=== PATIENT | male | born 1990 | race African-American/Black ===

== ENCOUNTER 2017-10-14 13:15 | Inpatient (IN) | payer OTHER ==
[2017-10-14 14:00] VITALS: BMI 29.7
--- NOTE | 2017-10-14 14:28 | HP ---
COWS - Scale Resting Pulse: 0= [place] 80 or Below Sweatin= Chills/Flushing Restless Observation: 3= Extraneous Movement Pupil Size: 1= Pupils >than Normal Bone or Joint Aches: 2= Severe Diffuse Aches Runny Nose/ Eye Tearin= Nasal Congestion GI Upset > 30mins: 2= Nausea/Diarrhea Tremor Observation: 2= Slight Tremor Visible Yawning Observation: 2= >3x During Session Anxiety or Irritability: 2=Irritable/Anxious Goose Flesh Skin: 3=Piloerection COWS Score: 19 Admission ROS S - HPI Chief Complaint: opiate and xanax withdrawal sx Allergies/Adverse Reactions: Allergies Allergy/AdvReac Type Severity Reaction Status Date / Time No Known Allergies Allergy Verified 10/14/17 14:26 History of Present Illness: 26 years old male with long history of opiate and xanax and nicotine dependence has hepatitis c and depression is admitted to detox Exam Limitations: No Limitations - Ebola screening Have you traveled outside of the country in the last 21 days: No (N) Have you had contact with anyone from an Ebola affected area: No Have you been sick,other than usual withdrawal symptoms: No Do you have a fever: No - Review of Systems Constitutional: Changes in sleep, Weight Stable EENT: reports: No Symptoms Reported Respiratory: reports: No Symptoms reported Cardiac: reports: No Symptoms Reported GI: reports: Nausea, Poor Fluid Intake, Abdominal cramping : reports: No Symptoms Reported Musculoskeletal: reports: Back Pain, Joint Pain, Muscle Pain, Neck Pain Integumentary: reports: Other (iv heroin both arms) Neuro: reports: Tremors Endocrine: reports: No Symptoms Reported Hematology: reports: No Symptoms Reported Psychiatric: reports: Judgement Intact, Orientated x3, Anxious, Depressed Other Systems: Reviewed and Negative Patient History - Patient Medical History Hx Anemia: No Hx Asthma: No Hx Chronic Obstructive Pulmonary Disease (COPD): No Hx Cancer: No Hx Cardiac Disorders: No Hx Congestive Heart Failure: No Hx Hypertension: No Hx Hypercholesterolemia: No Hx Pacemaker: No HX Cerebrovascular Accident: No Hx Seizures: No Hx Dementia: No Hx Diabetes: No Hx Gastrointestinal Disorders: No Hx Liver Disease: No Hx Genitourinary Disorders: No Hx Sexually Transmitted Disorders: No Hx Renal Disease (ESRD): No Hx Thyroid Disease: No Hx Human Immunodeficiency Virus (HIV): No Hx Hepatitis C: Yes Hx Depression: No Hx Suicide Attempt: No Hx Bipolar Disorder: No Hx Schizophrenia: Yes - Patient Surgical History Past Surgical History: Yes Hx Neurologic Surgery: Yes (cephalic manigitis ) Hx Cataract Extraction: No Hx Cardiac Surgery: No Hx Lung Surgery: No Hx Breast Surgery: No Hx Breast Biopsy: No Hx Abdominal Surgery: No Hx Appendectomy: No Hx Cholecystectomy: No Hx Genitourinary Surgery: No Hx Orthopedic Surgery: No Anesthesia Reaction: No - PPD History Previous Implant?: Yes Documented Results: Negative w/o proof Implanted On Prior [facility] Admission?: No PPD to be Administered?: Yes - Smoking Cessation Smoking history: Current every day smoker Have you smoked in the past 12 months: Yes Aproximately how many cigarettes per day: 30 Cigars Per Day: 0 Hx Chewing Tobacco Use: No Initiated information on smoking cessation: Yes 'Breaking Loose' booklet given: 10/14/17 - Substance & Tx. History Hx Alcohol Use: No Hx Substance Use: Yes Substance Use Type: Cocaine, Marijuana, Opiates, Tranquilizers Hx Substance Use Treatment: Yes (2016 [facility]) - Substances Abused Heroin Route: Injection Frequency: Daily Amount used: 1 bundle Age of first use: 18 Date of Last Use: 10/13/17 xanax Route: Oral Frequency: Daily Amount used: 8 mg Age of first use: 23 Date of Last Use: 10/13/17 Family Disease History - Family Disease History Family Disease History: Other: Father (), Mother () Admission Physical Exam BHS - Vital Signs Vital Signs: Vital Signs - 24 hr 10/14/17 13:58 Temperature 97.5 F L Pulse Rate 58 L Respiratory 18 Rate Blood Pressure 144/96 - Physical General Appearance: Yes: Nourished, Appropriately Dressed, Moderate Distress, Tremorous, Irritable, Sweating, Anxious HEENTM: Yes: Hearing grossly Normal, Normocephalic, Normal Voice, Other (open skull surgery in menigitis treatment) Respiratory: Yes: Chest Non-Tender, Lungs Clear, Normal Breath Sounds, No Respiratory Distress, No Accessory Muscle Use Neck: Yes: Supple, Trachea in good position Breast: Yes: Breasts Symetrical, No Discharge Cardiology: Yes: Regular Rhythm, S1, S2, Bradycardia Abdominal: Yes: Normal Bowel Sounds, Non Tender, Flat Genitourinary: Yes: Within Normal Limits Back: Yes: Normal Inspection Musculoskeletal: Yes: full range of Motion, Gait Steady, Back pain, Muscle Pain Extremities: Yes: Normal Range of Motion, Non-Tender, Tremors Neurological: Yes: Alert, Motor Strength 5/5, Normal Response, Depressed Affect Integumentary: Yes: Warm, Track [place] Lymphatic: Yes: Within Normal Limits - Diagnostic (1) Schizophrenia Current Visit: Yes Status: Suspected Qualifiers: Schizophrenia type: unspecified Qualified Code(s): F20.9 - Schizophrenia, unspecified (2) Nicotine dependence Current Visit: Yes Status: Acute Qualifiers: Nicotine product type: cigarettes Substance use status: in withdrawal Qualified Code(s): F17.213 - Nicotine dependence, cigarettes, with withdrawal (3) Opioid dependence with withdrawal Current Visit: Yes Status: Acute (4) Sedative, hypnotic or anxiolytic dependence with withdrawal, uncomplicated Current Visit: Yes Status: Acute (5) Hepatitis C carrier Current Visit: Yes Status: Chronic Cleared for Admission [facility] - Detox or Rehab [facility] Level of Care: Medically Managed Detox Regimen/Protocol: Methadone/Valium [facility] Breath Alcohol Content Breath Alcohol Content: 0 Urine Drug Screen - Results Drug Screen Negative: No Urine Drug Screen Results: THC-Marijuana, МАРИНА-Cocaine, MET-Methamphetamine, BZO- Benzodiazepines, OXY-Oxycodone
[2017-10-14] MEDS ORDERED: MAGNESIUM CITRATE 300 ML BOTTLE PO PRN (14:41)
[2017-10-14] MEDS ORDERED: NICOTINE POLACRILEX 4 MG GUM BC PRN (14:41)
[2017-10-14] MEDS ORDERED: MENTHOL/PHENOL 1 EACH UD MM PRN (14:41)
[2017-10-14] MEDS ORDERED: ACETAMINOPHEN 325 MG TABLET (FP) PO PRN (14:41)
[2017-10-14] MEDS ORDERED: LOPERAMIDE HCL 2 MG CAPSULE PO PRN (14:41)
[2017-10-14] MEDS ORDERED: MAGNESIUM HYDROX 2400MG/30ML ORAL SUSPENSION 30 ML CUP PO PRN (14:41)
[2017-10-14] MEDS ORDERED: P-EPHED 60MG/TRIPROLIDI 2.5MG TABLET PO PRN (14:41)
[2017-10-14] MEDS ORDERED: IBUPROFEN 400 MG TABLET (FP) PO PRN (14:41)
[2017-10-14] MEDS ORDERED: MAG HYDROX/AL HYDROX/SIMETH 30 ML UNIT-DOSE CUP PO PRN (14:41)
[2017-10-14] MEDS ORDERED: guaiFENesin/D-METHORPHAN HB 10 ML UNIT-DOSE CUPS PO PRN (14:41)
[2017-10-14] MEDS ORDERED: ONDANSETRON *ODT* 4 MG TABLET SL PRN (14:43)
--- NOTE | 2017-10-14 15:15 | HP ---
COWS - Scale Resting Pulse: 0= [place] 80 or Below Sweatin= Chills/Flushing Restless Observation: 3= Extraneous Movement Pupil Size: 1= Pupils >than Normal Bone or Joint Aches: 2= Severe Diffuse Aches Runny Nose/ Eye Tearin= Nasal Congestion GI Upset > 30mins: 2= Nausea/Diarrhea Tremor Observation: 2= Slight Tremor Visible Yawning Observation: 2= >3x During Session Anxiety or Irritability: 2=Irritable/Anxious Goose Flesh Skin: 3=Piloerection COWS Score: 19 CIWA Score - CIWA Score Nausea/Vomitin-Mild Nausea/No Vomiting Muscle Tremors: 4-Moderate,w/Arms Extend Anxiety: 4-Mod. Anxious/Guarded Agitation: 4-Moderately Restless Paroxysmal Sweats: 1-Minimal Palms Moist Orientation: 0-Oriented Tacttile Disturbances: 1-Very Mild Itch/Numbness Auditory Disturbances: 0-None Visual Disturbances: 0-None Headache: 0-None Present CIWA-Ar Total Score: [address] [facility] [place] Allergies/Adverse Reactions: Allergies Allergy/AdvReac Type Severity Reaction Status Date / Time No Known Allergies Allergy Verified 10/14/17 14:26 - Ebola screening Have you traveled outside of the country in the last 21 days: No (N) Have you had contact with anyone from an Ebola affected area: No Have you been sick,other than usual withdrawal symptoms: No Do you have a fever: No Patient History - Patient Medical History Hx Anemia: No Hx Asthma: No Hx Chronic Obstructive Pulmonary Disease (COPD): No Hx Cancer: No Hx Cardiac Disorders: No Hx Congestive Heart Failure: No Hx Hypertension: No Hx Hypercholesterolemia: No Hx Pacemaker: No HX Cerebrovascular Accident: No Hx Seizures: No Hx Dementia: No Hx Diabetes: No Hx Gastrointestinal Disorders: No Hx Liver Disease: No Hx Genitourinary Disorders: No Hx Sexually Transmitted Disorders: No Hx Renal Disease (ESRD): No Hx Thyroid Disease: No Hx Human Immunodeficiency Virus (HIV): No Hx Hepatitis C: Yes Hx Depression: No Hx Suicide Attempt: No Hx Bipolar Disorder: No Hx Schizophrenia: Yes - Patient Surgical History Past Surgical History: Yes Hx Neurologic Surgery: Yes (cephalic manigitis infant) Hx Cataract Extraction: No Hx Cardiac Surgery: No Hx Lung Surgery: No Hx Breast Surgery: No Hx Breast Biopsy: No Hx Abdominal Surgery: No Hx Appendectomy: No Hx Cholecystectomy: No Hx Genitourinary Surgery: No Hx Section: No Hx Orthopedic Surgery: No Other Surgical History: PATIENT REPORTS BRAIN SURGERY Anesthesia Reaction: No - PPD History Previous Implant?: Yes Documented Results: Negative w/o proof Implanted On Prior R Admission?: No - Smoking Cessation Smoking history: Current every day smoker Have you smoked in the past 12 months: Yes Aproximately how many cigarettes per day: 30 Cigars Per Day: 0 Hx Chewing Tobacco Use: No Initiated information on smoking cessation: Yes 'Breaking Loose' booklet given: 10/14/17 - Substances Abused Heroin Route: Injection Frequency: Daily Amount used: 1 bundle Age of first use: 18 Date of Last Use: 10/13/17 Cocaine Route: Injection Frequency: Daily Amount used: 1/2 GRAM Age of first use: 16 Date of Last Use: 10/13/17 xanax Route: Oral Frequency: Daily Amount used: 8 mg Age of first use: 23 Date of Last Use: 10/13/17 Family Disease History - Family Disease History Family Disease History: Other: Father (), Mother () Admission Physical Exam S - Vital Signs Vital Signs: Vital Signs - 24 hr 10/14/17 13:58 Temperature 97.5 F L Pulse Rate 58 L Respiratory 18 Rate Blood Pressure 144/96 - Diagnostic (1) Schizophrenia Current Visit: Yes Status: Suspected Qualifiers: Schizophrenia type: unspecified Qualified Code(s): F20.9 - Schizophrenia, unspecified (2) Nicotine dependence Current Visit: Yes Status: Acute Qualifiers: Nicotine product type: cigarettes Substance use status: in withdrawal Qualified Code(s): F17.213 - Nicotine dependence, cigarettes, with withdrawal (3) Opioid dependence with withdrawal Current Visit: Yes Status: Acute (4) Sedative, hypnotic or anxiolytic dependence with withdrawal, uncomplicated Current Visit: Yes Status: Acute (5) Hepatitis C carrier Current Visit: Yes Status: Chronic BHS Breath Alcohol Content Breath Alcohol Content: 0 Urine Drug Screen - Results Drug Screen Negative: No Urine Drug Screen Results: THC-Marijuana, МАРИНА-Cocaine, MET-Methamphetamine, BZO- Benzodiazepines, OXY-Oxycodone
[2017-10-14] MEDS ORDERED: METHADONE HCL 10 MG TABLET (FOR DETOX USE ONLY) PO ONE ×2 (15:45→23:00)
[2017-10-14] MEDS ORDERED: diazePAM 5 MG TABLET PO ONE (15:45)
[2017-10-14] MEDS: NICOTINE 21 MG/24 HOURS TOPICAL PATCH TD SCH (16:30)
[2017-10-14] MEDS: THIAMINE HCL 100 MG TABLET (FP) PO SCH (22:15)
[2017-10-14] MEDS: diazePAM 5 MG TABLET PO SCH (22:15)
[2017-10-15] MEDS ORDERED: TRIMETHOBENZAMIDE HCL 200MG/2ML INJ IM PRN ×2 (00:45→07:04)
[2017-10-15 04:11] LABS: URINE APPEARANCE CLEAR; URINE BILIRUBIN NEGATIVE (<2.0 mg/dL); URINE BLOOD NEGATIVE (NEGATIVE); URINE COLOR YELLOW; URINE GLUCOSE (UA) NEGATIVE (NEGATIVE); URINE KETONE NEGATIVE (NEGATIVE); URINE LEUK ESTERASE NEGATIVE (NEGATIVE); URINE NITRITE NEGATIVE (NEGATIVE); URINE UROBILINOGEN NEGATIVE mg/dL (0.2-1.0)
[2017-10-15 04:21] LABS: URINE PROTEIN 1+ (NEGATIVE)
[2017-10-15 04:25] LABS: EPI CELLS RARE /HPF (FEW); URINE BACTERIA MODERATE /hpf (NONE SEEN); URINE MUCUS RARE
[2017-10-15] MEDS ORDERED: cloNIDine HCL 0.1 MG TABLET PO PRN (07:01)
[2017-10-15] MEDS: diazePAM 5 MG TABLET PO SCH ×3 (07:30→22:34)
[2017-10-15] MEDS: diazePAM 5 MG TABLET PO PRN ×2 (09:45→17:45)
[2017-10-15] MEDS ORDERED: METHADONE HCL 10 MG TABLET (FOR DETOX USE ONLY) PO SCH (10:00)
[2017-10-15 10:21] LABS: HEMATOCRIT 45.6 % (35.4-49); HEMOGLOBIN 15.1 GM/dL (11.7-16.9); MCH 29.1 pg (25.7-33.7); MCHC 33.1 g/dl (32.0-35.9); MEAN CELL VOLUME 87.9 fl (80-96); MEAN PLT VOLUME 8.6 fl (7.5-11.1); PLATELET COUNT 354 K/MM3 (134-434); RBC 5.19 M/mm3 (4.00-5.60); RDW 13.7 % (11.9-15.9); WHITE BLOOD COUNT 7.2 K/mm3 (4.0-10.0)
[2017-10-15] MEDS: NICOTINE 21 MG/24 HOURS TOPICAL PATCH TD SCH (10:22)
[2017-10-15] MEDS: PRENATAL VITAMINS W/ FOLIC ACID TABLET (FP) PO SCH (10:22)
[2017-10-15 10:48] LABS: CHLORIDE 103 mmol/L (98-107); POTASSIUM 4.3 mmol/L (3.5-5.1); SODIUM 138 mmol/L (136-145)
[2017-10-15 10:53] LABS: ALBUMIN 4.1 g/dl (3.4-5.0); ALK PHOS 77 U/L (45-117); ANION GAP 8 (8-16); BILIRUBIN,TOTAL 0.6 mg/dL (0.2-1.0); BLOOD UREA NITROGEN 9 mg/dL (7-18); CALCIUM 9.5 mg/dL (8.5-10.1); CO2 27 mmol/L (21-32); GLUCOSE,RANDOM 131 mg/dL (74-106); SGOT/AST 31 U/L (15-37); SGPT/ALT 56 U/L (12-78)
[2017-10-15] MEDS ORDERED: cloNIDine HCL 0.1 MG TABLET PO ONE (13:01)
--- NOTE | 2017-10-15 13:09 | PN ---
S CIWA - CIWA Score Nausea/Vomitin Muscle Tremors: 3 Anxiety: 4-Mod. Anxious/Guarded Agitation: 0-Normal Activity Paroxysmal Sweats: No Perspiration Orientation: 0-Oriented Tacttile Disturbances: 2-Mild Itch/Numbness/Burn Auditory Disturbances: 0-None Visual Disturbances: 3-Moderate Sensitivity Headache: 0-None Present CIWA-Ar Total Score: 18 BHS COWS - Scale Resting Pulse: 0= [place] 80 or Below Sweatin= No chills or Flushing Restless Observation: 0= Sits Still Pupil Size: 0= Normal to Room Light Bone or Joint Aches: 2= Severe Diffuse Aches Runny Nose/ Eye Tearin= None GI Upset > 30mins: 3= Vomiting/Diarrhea Tremor Observation of Outstretched Hands: 2= Slight Tremor Visible Yawning Observation: 2= >3x During Session Anxiety or Irritability: 2=Irritable/Anxious Goose Flesh Skin: 3=Piloerection COWS Score: 14 BHS Progress Note (SOAP) Subjective: Tremors, Fatigue, Body Aches, Vomiting. Objective: PATIENT A & O X 3. NO ACUTE DISTRESS. 10/15/17 13:04 Vital Signs Temperature 99.2 F 10/15/17 09:23 Pulse Rate 52 L 10/15/17 09:23 Respiratory Rate 20 10/15/17 09:23 Blood Pressure 174/102 10/15/17 09:23 O2 Sat by Pulse Oximetry (%) Laboratory Tests 10/14/17 10/15/17 10/15/17 16:40 09:30 09:30 WBC 7.2 RBC 5.19 Hgb 15.1 Hct 45.6 MCV 87.9 MCH 29.1 MCHC 33.1 RDW 13.7 Plt Count 354 MPV 8.6 Sodium 138 Potassium 4.3 Chloride 103 Carbon Dioxide 27 Anion Gap 8 BUN 9 Creatinine 1.0 Creat Clearance w eGFR > 60 Random Glucose 131 H Calcium 9.5 Total Bilirubin 0.6 AST 31 ALT 56 Alkaline Phosphatase 77 Total Protein 8.0 Albumin 4.1 Urine Color Yellow Urine Appearance Clear Urine pH 8.0 Ur Specific [place] 1.016 Urine Protein 1+ H Urine Glucose (UA) Negative Urine Ketones Negative Urine Blood Negative Urine Nitrite Negative Urine Bilirubin Negative Urine Urobilinogen Negative Ur Leukocyte Esterase Negative Urine WBC (Auto) <1 Urine RBC (Auto) <1 Ur Epithelial Cells Rare Urine Bacteria Moderate Urine Mucus Rare LABS NOTED. RPR RESULT PENDING. 10/15/17 13:05 Assessment: 10/15/17 13:04 WITHDRAWAL SYMPTOMS. Plan: CONTINUE DETOX. INCREASE DAILY PO FLUID INTAKE. PRN TIGAN IM FOR NAUSEA/VOMITING. CLONIDINE, 0.1 MG PO BID FOR ELEVATED BP AND SEVERE WITHDRAWAL SYMPTOMS.
[2017-10-15] MEDS: THIAMINE HCL 100 MG TABLET (FP) PO SCH (22:34)
[2017-10-15] MEDS: cloNIDine HCL 0.1 MG TABLET PO SCH (22:34)
[2017-10-16] MEDS: PRENATAL VITAMINS W/ FOLIC ACID TABLET (FP) PO SCH (10:23)
[2017-10-16] MEDS: METHADONE HCL 5 MG TABLET (FOR DETOX USE ONLY) PO SCH (10:23)
[2017-10-16] MEDS: cloNIDine HCL 0.1 MG TABLET PO SCH ×2 (10:23→22:11)
[2017-10-16] MEDS: diazePAM 5 MG TABLET PO SCH ×2 (10:23→22:10)
[2017-10-16] MEDS: NICOTINE 21 MG/24 HOURS TOPICAL PATCH TD SCH (10:23)
--- NOTE | 2017-10-16 15:50 | PN ---
S COWS - Scale Resting Pulse: 0= [place] 80 or Below Sweatin= No chills or Flushing Restless Observation: 0= Sits Still Pupil Size: 0= Normal to Room Light Bone or Joint Aches: 2= Severe Diffuse Aches Runny Nose/ Eye Tearin= Nasal Congestion GI Upset > 30mins: 2= Nausea/Diarrhea Tremor Observation of Outstretched Hands: 0= None Yawning Observation: 2= >3x During Session Anxiety or Irritability: 2=Irritable/Anxious Goose Flesh Skin: 3=Piloerection COWS Score: 12 BHS Progress Note (SOAP) Subjective: Fatigue, Anxious, Interrupted sleep, Body Aches. Objective: PATIENT A & O X 2 (UNCERTAIN ABOUT CURRENT DAY / DATE). PATIENT OBSERVED AMBULATING ON UNIT. NO ACUTE DISTRESS. 10/16/17 15:48 Vital Signs Temperature 97 F L 10/16/17 13:13 Pulse Rate 59 L 10/16/17 13:13 Respiratory Rate 18 10/16/17 13:13 Blood Pressure 109/65 10/16/17 13:13 O2 Sat by Pulse Oximetry (%) Laboratory Tests 10/14/17 10/15/17 10/15/17 16:40 09:30 09:30 WBC 7.2 RBC 5.19 Hgb 15.1 Hct 45.6 MCV 87.9 MCH 29.1 MCHC 33.1 RDW 13.7 Plt Count 354 MPV 8.6 Sodium 138 Potassium 4.3 Chloride 103 Carbon Dioxide 27 Anion Gap 8 BUN 9 Creatinine 1.0 Creat Clearance w eGFR > 60 Random Glucose 131 H Calcium 9.5 Total Bilirubin 0.6 AST 31 ALT 56 Alkaline Phosphatase 77 Total Protein 8.0 Albumin 4.1 Urine Color Yellow Urine Appearance Clear Urine pH 8.0 Ur Specific [place] 1.016 Urine Protein 1+ H Urine Glucose (UA) Negative Urine Ketones Negative Urine Blood Negative Urine Nitrite Negative Urine Bilirubin Negative Urine Urobilinogen Negative Ur Leukocyte Esterase Negative Urine WBC (Auto) <1 Urine RBC (Auto) <1 Ur Epithelial Cells Rare Urine Bacteria Moderate Urine Mucus Rare RPR Titer 10/15/17 09:30 WBC RBC Hgb Hct MCV MCH MCHC RDW Plt Count MPV Sodium Potassium Chloride Carbon Dioxide Anion Gap BUN Creatinine Creat Clearance w eGFR Random Glucose Calcium Total Bilirubin AST ALT Alkaline Phosphatase Total Protein Albumin Urine Color Urine Appearance Urine pH Ur Specific [place] Urine Protein Urine Glucose (UA) Urine Ketones Urine Blood Urine Nitrite Urine Bilirubin Urine Urobilinogen Ur Leukocyte Esterase Urine WBC (Auto) Urine RBC (Auto) Ur Epithelial Cells Urine Bacteria Urine Mucus RPR Titer Nonreactive LABS NOTED. Assessment: 10/16/17 15:49 WITHDRAWAL SYMPTOMS. Plan: CONTINUE DETOX. INCREASE DAILY PO FLUID INTAKE. ENCOURAGE AMBULATION PRN TIGAN IM FOR NAUSEA/VOMITING.
[2017-10-16] MEDS: THIAMINE HCL 100 MG TABLET (FP) PO SCH (22:11)
[2017-10-16] MEDS: MELATONIN 5 MG TABLETS PO PRN (22:12)
--- NOTE | 2017-10-16 22:46 | EKG ---
Test Reason : Blood Pressure : / mmHG Vent. Rate : 051 BPM Atrial Rate : 051 BPM P-R Int : 168 ms QRS Dur : 114 ms QT Int : 412 ms P-R-T Axes : 042 055 -74 degrees QTc Int : [address] ELEVATION CONSIDER ANTERIOR INJURY OR ACUTE INFARCT ACUTE SD / STEMI ABNORMAL ECG NO PREVIOUS ECGS AVAILABLE Confirmed by SUKHI CHAMPAGNE MD ([id number]) on 10/16/2017 10:45:56 PM Referred By: Confirmed By:SUKHI CHAMPAGNE MD
[2017-10-17] MEDS: diazePAM 5 MG TABLET PO PRN (09:03)
[2017-10-17] MEDS: cloNIDine HCL 0.1 MG TABLET PO SCH ×2 (10:10→22:03)
[2017-10-17] MEDS: PRENATAL VITAMINS W/ FOLIC ACID TABLET (FP) PO SCH (10:10)
[2017-10-17] MEDS: METHADONE HCL 5 MG TABLET (FOR DETOX USE ONLY) PO SCH (10:10)
[2017-10-17] MEDS: NICOTINE 21 MG/24 HOURS TOPICAL PATCH TD SCH (10:12)
[2017-10-17] MEDS: diazePAM 5 MG TABLET PO SCH ×2 (10:12→22:03)
--- NOTE | 2017-10-17 11:53 | PN ---
BHS Progress Note (SOAP) Subjective: Sleep disturbance sweats shakes Objective: 10/17/17 11:50 A & O x 3 not in acute distress Vital Signs Temperature 97.2 F L 10/17/17 09:31 Pulse Rate 53 L 10/17/17 09:31 Respiratory Rate 18 10/17/17 09:31 Blood Pressure 95/66 10/17/17 09:31 O2 Sat by Pulse Oximetry (%) Bp low - denies dizziness nor any complaints Assessment: 10/17/17 11:52 withdrawal sx Plan: Continue detox Continue hydration
[2017-10-17] MEDS: THIAMINE HCL 100 MG TABLET (FP) PO SCH (22:03)
[2017-10-17] MEDS: MELATONIN 5 MG TABLETS PO PRN (22:04)
[2017-10-18] MEDS ORDERED: diazePAM 5 MG TABLET PO SCH (10:00)
[2017-10-18] MEDS ORDERED: METHADONE HCL 10 MG TABLET (FOR DETOX USE ONLY) PO SCH (10:00)
[2017-10-18] MEDS: PRENATAL VITAMINS W/ FOLIC ACID TABLET (FP) PO SCH (10:07)
[2017-10-18] MEDS: cloNIDine HCL 0.1 MG TABLET PO SCH ×2 (10:07→22:19)
[2017-10-18] MEDS: NICOTINE 21 MG/24 HOURS TOPICAL PATCH TD SCH (10:07)
--- NOTE | 2017-10-18 12:45 | PN ---
BHS Progress Note (SOAP) Subjective: Fatigue, Anxious. Objective: PATIENT A & O X 3, OBSERVED AMBULATING ON UNIT. NO ACUTE DISTRESS. 10/18/17 12:41 Vital Signs Temperature 96.8 F L 10/18/17 09:04 Pulse Rate 62 10/18/17 09:04 Respiratory Rate 16 10/18/17 09:04 Blood Pressure 103/62 10/18/17 09:04 O2 Sat by Pulse Oximetry (%) Laboratory Tests 10/14/17 10/15/17 10/15/17 16:40 09:30 09:30 WBC 7.2 RBC 5.19 Hgb 15.1 Hct 45.6 MCV 87.9 MCH 29.1 MCHC 33.1 RDW 13.7 Plt Count 354 MPV 8.6 Sodium 138 Potassium 4.3 Chloride 103 Carbon Dioxide 27 Anion Gap 8 BUN 9 Creatinine 1.0 Creat Clearance w eGFR > 60 Random Glucose 131 H Calcium 9.5 Total Bilirubin 0.6 AST 31 ALT 56 Alkaline Phosphatase 77 Total Protein 8.0 Albumin 4.1 Urine Color Yellow Urine Appearance Clear Urine pH 8.0 Ur Specific [place] 1.016 Urine Protein 1+ H Urine Glucose (UA) Negative Urine Ketones Negative Urine Blood Negative Urine Nitrite Negative Urine Bilirubin Negative Urine Urobilinogen Negative Ur Leukocyte Esterase Negative Urine WBC (Auto) <1 Urine RBC (Auto) <1 Ur Epithelial Cells Rare Urine Bacteria Moderate Urine Mucus Rare RPR Titer 10/15/17 09:30 WBC RBC Hgb Hct MCV MCH MCHC RDW Plt Count MPV Sodium Potassium Chloride Carbon Dioxide Anion Gap BUN Creatinine Creat Clearance w eGFR Random Glucose Calcium Total Bilirubin AST ALT Alkaline Phosphatase Total Protein Albumin Urine Color Urine Appearance Urine pH Ur Specific [place] Urine Protein Urine Glucose (UA) Urine Ketones Urine Blood Urine Nitrite Urine Bilirubin Urine Urobilinogen Ur Leukocyte Esterase Urine WBC (Auto) Urine RBC (Auto) Ur Epithelial Cells Urine Bacteria Urine Mucus RPR Titer Nonreactive LABS NOTED. Assessment: 10/18/17 12:42 WITHDRAWAL SYMPTOMS. Plan: CONTINUE DETOX. PATIENT REPORTS SADNESS OVER HIS REPORTED HISTORY OF PSYCHOSOCIAL DIFFICULTIES. PATIENT DENIES CURRENT SUICIDAL IDEATION ./ HOMICIDAL IDEATION. PSYCHIATRIC EVALUATION ORDERED. PATIENT ALSO ADVISED TO SPEAK TO HIS COUNSELOR (Sina OWENS ) ABOUT AFTERCARE PLANNING.
[2017-10-18] MEDS: MELATONIN 5 MG TABLETS PO PRN (22:19)
[2017-10-18] MEDS: THIAMINE HCL 100 MG TABLET (FP) PO SCH (22:19)
[2017-10-19] MEDS ORDERED: METHADONE HCL 5 MG TABLET (FOR DETOX USE ONLY) PO SCH (06:00)
--- NOTE | 2017-10-19 09:36 | CONSULT ---
[facility] Psychiatric Consult - Data Date of interview: 09/18/17 Admission source: [facility] Identifying data: Patient is a 26 year old male, without kids, unemployed, denies financial assistance, and currently homeless. This is one of multiple admissions for patient. Pt. admitted to for opiate and benzodiazepine dependence. Substance Abuse History: Substance & Tx. History. Hx Alcohol Use: No. Hx Substance Use: Yes. Substance Use Type: Cocaine, Marijuana, Opiates, Tranquilizers. Hx Substance Use Treatment: Yes (2016 [facility]). - Substances Abused. Heroin. Route: Injection. Frequency: Daily. Amount used: 1 bundle. Age of first use: 18. Date of Last Use: 10/13/17. xanax. Route: Oral. Frequency: Daily. Amount used: 8 mg. Age of first use: 23. Date of Last Use: 10/13/17 Medical History: Hep C Psychiatric History: Patient presents as mildly irritable with a flat affect. Pt. unwilling to give a cohesive psychiatric history. Patient reports multiple psychiatric hospitalizations, most recently four years ago. Pt. is unwilling to state which hospital he was admitted too. States he was incarcerated from 2016-September 2017. When asked what led to his incarceration patient responded, "next question." Pt. reports a h/o taking "lots of medication" but is reluctant to accept medications while in detox. Reports taking medications while incarcerated but would not state which medication. Diagnosis of schizophrenia suspected. Pt. denies h/o suicide attempt. Physical/Sexual Abuse/Trauma History: Responded with "next question" Mental Status Exam - Mental Status Exam Alert and Oriented to: Time, Place, Person Cognitive Function: Good Patient Appearance: Well Groomed Mood: Euthymic, Irritable Affect: Flat Patient Behavior: Guarded Speech Pattern: Delayed (delayed in his response.) Voice Loudness: Normal Thought Process: Goal Oriented Thought Disorder: Not Present Hallucinations: Denies Suicidal Ideation: Denies Homicidal Ideation: Denies Insight/Judgement: Poor Sleep: Poorly Appetite: Fair Muscle strength/Tone: Normal Gait/Station: Other (Did not observe patient's gait.) Psychiatric Findings - Problem List ([facility] 1, 2,3) (1) Nicotine dependence Current Visit: Yes Status: Acute Qualifiers: Nicotine product type: cigarettes Substance use status: in withdrawal Qualified Code(s): F17.213 - Nicotine dependence, cigarettes, with withdrawal (2) Opioid dependence with withdrawal Current Visit: Yes Status: Acute (3) Sedative, hypnotic or anxiolytic dependence with withdrawal, uncomplicated Current Visit: Yes Status: Acute (4) Schizophrenia Current Visit: Yes Status: Suspected Qualifiers: Schizophrenia type: unspecified Qualified Code(s): F20.9 - Schizophrenia, unspecified (5) Substance induced mood disorder Current Visit: Yes Status: Acute - Initial Treatment Plan Initial Treatment Plan: Psychoeducation provided. Detoxification in progress. Patient agreeable to accepting Seroquel 50 HS. Vending Machine Collector encouraged patient to accept a higher dose but patient refused. Benefits and side effects discussed. Verbal consent given. Will continue to monitor.
[2017-10-19] MEDS: PRENATAL VITAMINS W/ FOLIC ACID TABLET (FP) PO SCH (10:08)
[2017-10-19] MEDS: NICOTINE 21 MG/24 HOURS TOPICAL PATCH TD SCH (10:09)
[2017-10-19] MEDS: cloNIDine HCL 0.1 MG TABLET PO SCH ×2 (10:09→22:10)
--- NOTE | 2017-10-19 12:12 | PN ---
BHS Progress Note (SOAP) Subjective: ANXIETY,IRRITABILITY,INTERMITTENT SLEEP. LAST DAY OF METHADONE 5 MG TAKEN. Objective: 10/19/17 12:05 Vital Signs 10/19/17 10/19/17 10/19/17 06:16 06:30 09:21 Temperature 96.7 F L 96.4 F L Pulse Rate 52 L 56 L Respiratory 18 18 16 Rate Blood Pressure 109/65 96/58 Laboratory Tests 10/14/17 10/15/17 10/15/17 16:40 09:30 09:30 WBC 7.2 RBC 5.19 Hgb 15.1 Hct 45.6 MCV 87.9 MCH 29.1 MCHC 33.1 RDW 13.7 Plt Count 354 MPV 8.6 Sodium 138 Potassium 4.3 Chloride 103 Carbon Dioxide 27 Anion Gap 8 BUN 9 Creatinine 1.0 Creat Clearance w eGFR > 60 Random Glucose 131 H Calcium 9.5 Total Bilirubin 0.6 AST 31 ALT 56 Alkaline Phosphatase 77 Total Protein 8.0 Albumin 4.1 Urine Color Yellow Urine Appearance Clear Urine pH 8.0 Ur Specific [place] 1.016 Urine Protein 1+ H Urine Glucose (UA) Negative Urine Ketones Negative Urine Blood Negative Urine Nitrite Negative Urine Bilirubin Negative Urine Urobilinogen Negative Ur Leukocyte Esterase Negative Urine WBC (Auto) <1 Urine RBC (Auto) <1 Ur Epithelial Cells Rare Urine Bacteria Moderate Urine Mucus Rare RPR Titer 10/15/17 09:30 WBC RBC Hgb Hct MCV MCH MCHC RDW Plt Count MPV Sodium Potassium Chloride Carbon Dioxide Anion Gap BUN Creatinine Creat Clearance w eGFR Random Glucose Calcium Total Bilirubin AST ALT Alkaline Phosphatase Total Protein Albumin Urine Color Urine Appearance Urine pH Ur Specific [place] Urine Protein Urine Glucose (UA) Urine Ketones Urine Blood Urine Nitrite Urine Bilirubin Urine Urobilinogen Ur Leukocyte Esterase Urine WBC (Auto) Urine RBC (Auto) Ur Epithelial Cells Urine Bacteria Urine Mucus RPR Titer Nonreactive Assessment: 10/19/17 12:05 SLIGHT WITHDRAWAL SX. Plan: CONTINUE DETOX
[2017-10-19] MEDS ORDERED: QUEtiapine FUMARATE 50 MG TABLET PO SCH (22:00)
[2017-10-19] MEDS: THIAMINE HCL 100 MG TABLET (FP) PO SCH (22:10)
[2017-10-19] MEDS: MELATONIN 5 MG TABLETS PO PRN (22:11)
[2017-10-20] MEDS: PRENATAL VITAMINS W/ FOLIC ACID TABLET (FP) PO SCH (10:09)
[2017-10-20] MEDS: cloNIDine HCL 0.1 MG TABLET PO SCH (10:09)
[2017-10-20] MEDS: NICOTINE 21 MG/24 HOURS TOPICAL PATCH TD SCH (10:09)
[2017-10-20 10:10] VITALS: BP 116/68; PULSE 62; TEMP 96.6
--- NOTE | 2017-10-20 16:18 | DS ---
[facility] Detox Discharge Summary Admission Date: 10/14/17 Discharge Date: 10/20/17 - History Present History: Opioid Dependence, Sedative Dependence Additional Comments: DETOX COMPLETED. ALERT O X 3. NAD. PT TO FOLLOW UP WITH AFTERCARE SCHEDULED WITH COUNSELOR. Pertinent Past History: PLEASE SEE DX BELOW - Physical Exam Results Vital Signs: Vital Signs Temperature 96.6 F L 10/20/17 10:09 Pulse Rate 62 10/20/17 10:09 Respiratory Rate 18 10/20/17 10:09 Blood Pressure 116/68 10/20/17 10:09 O2 Sat by Pulse Oximetry (%) Pertinent Admission Physical Exam Findings: WITHDRAWAL SX Laboratory Tests 10/14/17 10/15/17 10/15/17 16:40 09:30 09:30 WBC 7.2 RBC 5.19 Hgb 15.1 Hct 45.6 MCV 87.9 MCH 29.1 MCHC 33.1 RDW 13.7 Plt Count 354 MPV 8.6 Sodium 138 Potassium 4.3 Chloride 103 Carbon Dioxide 27 Anion Gap 8 BUN 9 Creatinine 1.0 Creat Clearance w eGFR > 60 Random Glucose 131 H Calcium 9.5 Total Bilirubin 0.6 AST 31 ALT 56 Alkaline Phosphatase 77 Total Protein 8.0 Albumin 4.1 Urine Color Yellow Urine Appearance Clear Urine pH 8.0 Ur Specific [place] 1.016 Urine Protein 1+ H Urine Glucose (UA) Negative Urine Ketones Negative Urine Blood Negative Urine Nitrite Negative Urine Bilirubin Negative Urine Urobilinogen Negative Ur Leukocyte Esterase Negative Urine WBC (Auto) <1 Urine RBC (Auto) <1 Ur Epithelial Cells Rare Urine Bacteria Moderate Urine Mucus Rare RPR Titer 10/15/17 09:30 WBC RBC Hgb Hct MCV MCH MCHC RDW Plt Count MPV Sodium Potassium Chloride Carbon Dioxide Anion Gap BUN Creatinine Creat Clearance w eGFR Random Glucose Calcium Total Bilirubin AST ALT Alkaline Phosphatase Total Protein Albumin Urine Color Urine Appearance Urine pH Ur Specific [place] Urine Protein Urine Glucose (UA) Urine Ketones Urine Blood Urine Nitrite Urine Bilirubin Urine Urobilinogen Ur Leukocyte Esterase Urine WBC (Auto) Urine RBC (Auto) Ur Epithelial Cells Urine Bacteria Urine Mucus RPR Titer Nonreactive - Treatment Hospital Course: Detox Protocol Followed, Detoxed Safely, Responded well, Discharged Condition Good, Rehab Referral Accepted Patient has Accepted a Rehab Referral to: [facility] - Medication Discharge Medications: Ambulatory Orders NK [No Known Home Medication] 10/14/17 - Diagnosis (1) Nicotine dependence Status: Acute Qualifiers: Nicotine product type: cigarettes Substance use status: in withdrawal Qualified Code(s): F17.213 - Nicotine dependence, cigarettes, with withdrawal (2) Opioid dependence with withdrawal Status: Acute (3) Sedative, hypnotic or anxiolytic dependence with withdrawal, uncomplicated Status: Acute (4) Hepatitis C carrier Status: Chronic - AMA Did Patient Leave Against Medical Advice: No
== END 2017-10-20 10:40 | disposition home or self-care (01) | DRG 773 ==
LOC: YASAS 13:15 → Y3N 15:22
PROVIDERS: ADMIT Surgery; ATTEND Surgery
PROC: HZ2ZZZZ Detoxification Services for Substance Abuse Treatment (ICD-10-PCS; principal; 2017-10-14)
DX: F11.23 Opioid dependence with withdrawal (principal); F13.230 Sedative, hypnotic or anxiolytic dependence with withdrawal, uncomplicated; F17.213 Nicotine dependence, cigarettes, with withdrawal; F20.9 Schizophrenia, unspecified; F19.24 Other psychoactive substance dependence with psychoactive substance-induced mood disorder; B18.2 Chronic viral hepatitis C; Z59.0 Homelessness
CPT/HCPCS: 36415; 80053; 81003; 81015; 85027; 86593; 93005; 93010; J0735; Q0162